=== PATIENT | female | born 1960 | race Hispanic/Latino ===

== ENCOUNTER 2023-05-30 20:52 | Inpatient (IN) | payer OTHER ==
[~2023-05-30] VITALS: Ht 157.5 cm; Wt 73.5 kg
[2023-05-30 21:24] LABS: BASOPHILS % (AUTO) 0.5 % (0.0-5.0); EOSINOPHILS % (AUTO) 0.7 % (0.0-8.0); HEMATOCRIT 41.4 % (36-48); LYMPHOCYTES % (AUTO) 27.1 % (21.0-51.0); MEAN CORPUSCULAR HEMOGLOBIN 28.1 pg (27.0-33.0); MEAN CORPUSCULAR HGB CONC 32.1 g/dL (32.0-36.0); MEAN CORPUSCULAR VOLUME 87.5 fL (79-99); MONOCYTES % (AUTO) 6.9 % (3.0-13.0); NEUTROPHILS % (AUTO) 64.5 % (40.0-77.0); PLATELET COUNT (AUTO) 293 K/uL (130-400); RED BLOOD CELL COUNT(AUTO) 4.73 MIL/uL (4.00-5.50); RED CELL DISTRIBUTION WIDTH 14.9 % (11.0-15.5); WHITE BLOOD COUNT (AUTO) 11.6 K/uL (4.8-10.8)
[2023-05-30 21:25] LABS: APPEARANCE,URINE CLOUDY (CLEAR); BILIRUBIN,URINE NEGATIVE (NEGATIVE); COLOR,URINE YELLOW (YELLOW); GLUCOSE, URINE (UA) NEGATIVE (NEGATIVE); KETONES,URINE 5 mg/dL (NEGATIVE); LEUKOCYTE ESTERASE ,URINE 500 Leu/uL (NEGATIVE); NITRATE,URINE NEGATIVE (NEGATIVE); OCCULT BLOOD,URINE NEGATIVE (NEGATIVE); PROTEIN,URINE 10 mg/dL (NEGATIVE); UROBILINOGEN,URINE 3 mg/dL (0.2-1.0)
[2023-05-30 21:28] LABS: BACTERIA,URINE RARE /HPF (None Seen); MUCUS,URINE RARE LPF (None Seen); OTHER CASTS, URINE 1 /LPF (None Seen); SQUAMOUS EPITHELIAL CELL,UR MOD /HPF (0-2)
[2023-05-30 21:39] LABS: ALBUMIN 3.6 g/dL (3.5-5.0); CARBON DIOXIDE 28 mmol/L (21-32); CHLORIDE 102 mmol/L (101-111); CREATININE 0.8 mg/dL (0.5-1.5); GLOMERULAR FILTR. RATE CALC 82 mL/min (>90); GLUCOSE,RANDOM 198 mg/dL (70-105); POTASSIUM 3.3 mmol/L (3.5-5.1); UREA NITROGEN, BLOOD 7 mg/dL (7-18)
[2023-05-30 21:55] LABS: ALANINE AMINOTRANSFERASE 25 U/L (12-78); ASPARTATE AMINOTRANSFERASE 25 U/L (10-37); SODIUM SERUM 138 mmol/L (136-145)
[2023-05-30 21:56] LABS: LIPASE < 50 U/L (114-286)
[2023-05-30] MEDS ORDERED: FAMOTIDINE 20MG VIAL IV ONE (23:00)
[2023-05-30] MEDS ORDERED: MORPHINE 4 MG SYG IVP ONE (23:00)
[2023-05-30] MEDS ORDERED: LACTATED RINGERS 1000ML 1,000 ML IV ONE (23:00)
[2023-05-30] MEDS ORDERED: ONDANSETRON 4MG INJ IVP ONE (23:00)
[2023-05-30] MEDS ORDERED: IOHEXOL-350 75 ML VIAL IV ONE (23:25)
[2023-05-31] MEDS ORDERED: 0.9%NACL 1000ML 1,000 ML IV ONE (01:00)
[2023-05-31] MEDS ORDERED: ZOSYN 3.375GM +NS 50ML IVPB ONE (01:00)
[2023-05-31] MEDS ORDERED: ONDANSETRON 4MG INJ IV PRN (01:30)
[2023-05-31] MEDS ORDERED: LACTULOSE 20 GM/30 ML UDCUP PO PRN (01:30)
[2023-05-31] MEDS ORDERED: ACETAMINOPHEN 325 MG TAB PO PRN ×2 (01:30)
[2023-05-31] MEDS ORDERED: MORPHINE 2 MG SYG IV PRN (01:30)
[2023-05-31] MEDS: LACTATED RINGERS 1000ML 1,000 ML IV SCH ×3 (02:25→21:14)
[2023-05-31 03:06] VITALS: BP 125/89
[2023-05-31] MEDS ORDERED: LACT10SO9 PO (03:38)
[2023-05-31] MEDS ORDERED: OMEP40CA21 PO (03:38)
[2023-05-31] MEDS ORDERED: ALEN70TA80 PO (03:38)
[2023-05-31] MEDS ORDERED: LUBI8CAP5 PO (03:38)
[2023-05-31] MEDS ORDERED: ERGO500093 PO (03:38)
[2023-05-31] MEDS: ZOSYN 3.375GM+NS 50ML 50 ML IVPB SCH ×3 (05:08→21:16)
[2023-05-31] MEDS: INSULIN HUMULIN R 100 UNIT/ML 3ML SQ SCH ×3 (05:22→18:00)
[2023-05-31] MEDS ORDERED: METRONIDAZOLE 500MG/100ML BAG 100 ML IVPB SCH (06:00)
[2023-05-31 08:00] VITALS: BP 115/71
[2023-05-31] MEDS: FAMOTIDINE 20MG VIAL IV SCH ×2 (11:07→21:17)
[2023-05-31 11:42] VITALS: BP 127/79
[2023-05-31 16:00] VITALS: BP 122/81
[2023-05-31 19:45] VITALS: BP 134/82
[2023-05-31] MEDS ORDERED: BISACODYL 5 MG TABLET.DR PO SCH (21:00)
[2023-05-31] MEDS: DOCUSATE SODIUM 100 MG CAP PO SCH (21:32)
[2023-05-31 23:35] VITALS: BP 130/73
[2023-06-01] MEDS: LACTATED RINGERS 1000ML 1,000 ML IV SCH ×3 (00:30→20:55)
[2023-06-01 04:02] VITALS: BP 132/85
[2023-06-01] MEDS: ZOSYN 3.375GM+NS 50ML 50 ML IVPB SCH ×3 (04:29→20:15)
[2023-06-01] MEDS: INSULIN HUMULIN R 100 UNIT/ML 3ML SQ SCH ×4 (06:31→20:52)
[2023-06-01 08:00] VITALS: BP 130/82
[2023-06-01] MEDS: FAMOTIDINE 20MG VIAL IV SCH ×2 (08:31→20:15)
[2023-06-01] MEDS: DOCUSATE SODIUM 100 MG CAP PO SCH ×2 (08:31→20:15)
[2023-06-01 12:00] VITALS: BP 137/86
[2023-06-01 16:00] VITALS: BP 128/81
[2023-06-01] MEDS: SIMETHICONE 80 MG TAB.CHEW PO SCH ×2 (18:47→20:11)
[2023-06-01 19:45] VITALS: BP 136/92
[2023-06-01 23:48] VITALS: BP 109/79
[2023-06-02] MEDS: LACTATED RINGERS 1000ML 1,000 ML IV SCH ×2 (02:52→05:40)
[2023-06-02 03:52] VITALS: BP 119/76
[2023-06-02] MEDS: ZOSYN 3.375GM+NS 50ML 50 ML IVPB SCH (04:04)
[2023-06-02 06:06] LABS: BASOPHILS % (AUTO) 0.8 % (0.0-5.0); EOSINOPHILS % (AUTO) 2.9 % (0.0-8.0); HEMATOCRIT 36.1 % (36-48); LYMPHOCYTES % (AUTO) 47.7 % (21.0-51.0); MEAN CORPUSCULAR HEMOGLOBIN 28.7 pg (27.0-33.0); MEAN CORPUSCULAR HGB CONC 31.9 g/dL (32.0-36.0); MONOCYTES % (AUTO) 10.5 % (3.0-13.0); PLATELET COUNT (AUTO) 235 K/uL (130-400); RED BLOOD CELL COUNT(AUTO) 4.01 MIL/uL (4.00-5.50); RED CELL DISTRIBUTION WIDTH 14.9 % (11.0-15.5); WHITE BLOOD COUNT (AUTO) 7.8 K/uL (4.8-10.8)
[2023-06-02 06:21] LABS: CREATININE 0.8 mg/dL (0.5-1.5)
[2023-06-02] MEDS: INSULIN HUMULIN R 100 UNIT/ML 3ML SQ SCH (06:36)
[2023-06-02 08:00] VITALS: BP 113/77
[2023-06-02] MEDS: FAMOTIDINE 20MG VIAL IV SCH (08:18)
[2023-06-02] MEDS: DOCUSATE SODIUM 100 MG CAP PO SCH (08:18)
[2023-06-02] MEDS: SIMETHICONE 80 MG TAB.CHEW PO SCH ×2 (08:18→12:59)
[2023-06-02] MEDS: KCL 20 MEQ ERTAB PO PRN ×3 (08:19→13:49)
[2023-06-02] MEDS ORDERED: AMOX1TAB16 PO (08:27)
[2023-06-02] MEDS ORDERED: ONDA-104 PO (08:28)
[2023-06-02] MEDS ORDERED: POTASSIUM CHLORIDE 20MEQ/100ML 100 ML IV PRN ×2 (08:30)
[2023-06-02] MEDS ORDERED: KCL 20 MEQ ERTAB PO PRN (08:30)
[2023-06-02] MEDS ORDERED: MAGNESIUM 2GM PREMIX 50ML 50 ML IV PRN (08:30)
[2023-06-02] MEDS ORDERED: POTASSIUM CHLORIDE 10% ELIXIR 20 MEQ/15 ML UDCUP PO PRN ×2 (08:30)
[2023-06-02 11:40] VITALS: BP 120/74
== END 2023-06-02 15:30 | disposition home or self-care (01) | DRG 392 ==
LOC: EDH 20:52 → EDHIP 20:53 → 4DH 05-31 02:50
PROVIDERS: ADMIT Hospitalist; ATTEND Hospitalist
DX: K57.32 Diverticulitis of large intestine without perforation or abscess without bleeding (principal); N39.0 Urinary tract infection, site not specified; K80.20 Calculus of gallbladder without cholecystitis without obstruction; E87.6 Hypokalemia; E11.9 Type 2 diabetes mellitus without complications; K58.9 Irritable bowel syndrome, unspecified; Z79.899 Other long term (current) drug therapy; Z88.2 Allergy status to sulfonamides
CPT/HCPCS: 36415; 71045; 74018; 74178; 80048; 80053; 81001; 82948; 83605; 83690; 83735; 84484; 85025; 87040; 87088; 93005; G0378; J2270; J2405; J2543; J3490; J7120; Q9967

== ENCOUNTER → 2024-07-02 | Outpatient (CLI) | payer OTHER ==
[~2024-07-02] MED LIST: ERGO500093 PO
== END | disposition home or self-care (01) ==
LOC: RAH 10:16
PROVIDERS: ATTEND Surgery
DX: K57.20 Diverticulitis of large intestine with perforation and abscess without bleeding (principal); N39.9 Disorder of urinary system, unspecified; M47.815 Spondylosis without myelopathy or radiculopathy, thoracolumbar region
CPT/HCPCS: 74018

== ENCOUNTER → 2024-07-16 | Outpatient (CLI) | payer OTHER ==
[~2024-07-16] MED LIST changes: +AMOX1TAB16 PO; +CEPH500B PO; +PHEN-776 PO
[2024-07-16 08:20] LABS: BASOPHILS # (AUTO) 0.06 K/uL (0.00-0.20); BASOPHILS % (AUTO) 0.6 % (0.0-5.0); EOSINOPHILS # (AUTO) 0.15 K/uL (0.00-0.70); EOSINOPHILS % (AUTO) 1.5 % (0.0-8.0); IMMATURE GRANULOCYTE ABSOLUTE 0.02 K/uL (0-1); LYMPHOCYTES # (AUTO) 4.1 K/uL (1.0-4.8); LYMPHOCYTES % (AUTO) 42.4 % (21.0-51.0); MEAN CORPUSCULAR HEMOGLOBIN 30.1 pg (27.0-33.0); MEAN CORPUSCULAR HGB CONC 31.4 g/dL (32.0-36.0); MEAN CORPUSCULAR VOLUME 95.8 fL (79-99); MONOCYTES # (AUTO) 0.6 K/uL (0.1-1.0); MONOCYTES % (AUTO) 6.5 % (3.0-13.0); NEUTROPHILS # (AUTO) 4.8 K/uL (1.8-7.7); NEUTROPHILS % (AUTO) 48.8 % (40.0-77.0); PLATELET COUNT (AUTO) 278 K/uL (130-400); RED BLOOD CELL COUNT(AUTO) 4.49 MIL/uL (4.00-5.50); RED CELL DISTRIBUTION WIDTH 18.2 % (11.0-15.5); WHITE BLOOD COUNT (AUTO) 9.7 K/uL (4.8-10.8)
[2024-07-16 08:31] LABS: CREATININE 0.8 mg/dL (0.5-1.0); POTASSIUM 4.6 mmol/L (3.5-5.1)
== END | disposition home or self-care (01) ==
LOC: LAB 07:28
PROVIDERS: ATTEND Urology
DX: N13.39 Other hydronephrosis (principal)
CPT/HCPCS: 36415; 80048; 82570; 85025

== ENCOUNTER → 2024-07-18 | Emergency (ER) | payer OTHER ==
[~2024-07-18] VITALS: Ht 165.1 cm; Wt 72.6 kg
[2024-07-18 17:28] LABS: APPEARANCE,URINE TURBID (CLEAR); BILIRUBIN,URINE NEGATIVE (NEGATIVE); COLOR,URINE LIGHT-ORANGE (YELLOW); GLUCOSE, URINE (UA) NEGATIVE (NEGATIVE); KETONES,URINE NEGATIVE (NEGATIVE); LEUKOCYTE ESTERASE ,URINE 500 Leu/uL (NEGATIVE); NITRATE,URINE NEGATIVE (NEGATIVE); OCCULT BLOOD,URINE LARGE (NEGATIVE); PROTEIN,URINE 200 mg/dL (NEGATIVE); UROBILINOGEN,URINE 0.2 mg/dL (0.2-1.0)
[2024-07-18 17:29] LABS: ADD UA MICROSCOPIC YES
[2024-07-18 17:34] LABS: BACTERIA,URINE FEW /HPF (None Seen); MUCUS,URINE RARE LPF (None Seen); NON-SQUAMOUS EPITHELIAL CELL 3 /HPF (0-2); UNCLASSIFIED CRYSTAL 3 /HPF (None Seen); WBC CLUMP FEW /HPF (0-1); WBC,URINE 26-50 /HPF (0-1)
[2024-07-18 17:50] LABS: RBC,URINE 26-50 /HPF (0-1)
[2024-07-18 18:45] VITALS: BP 111/74; PULSE 88; RESP 16; O2SAT 100
[2024-07-18] MEDS: cefTRIAXone 1G VIAL IM ONE (18:53)
[2024-07-18] MEDS: PHENAZOPYRIDINE HCL 200 MG TABLET PO ONE (18:53)
== END ==
LOC: EDH 15:33
DX: T83.511A Infection and inflammatory reaction due to indwelling urethral catheter, initial encounter (principal); N39.0 Urinary tract infection, site not specified; Z93.2 Ileostomy status; Z88.2 Allergy status to sulfonamides; Z79.2 Long term (current) use of antibiotics; Z79.899 Other long term (current) drug therapy; Z90.49 Acquired absence of other specified parts of digestive tract; Y84.6 Urinary catheterization as the cause of abnormal reaction of the patient, or of later complication, without mention of misadventure at the time of the procedure; Y92.89 Other specified places as the place of occurrence of the external cause
CPT/HCPCS: 99283; 81001; 96372; J0696; 51798

== ENCOUNTER → 2024-07-23 | Outpatient (CLI) | payer OTHER ==
[~2024-07-23] MED LIST changes: +IOHEXOL-350 75 ML VIAL IV ONE
== END | disposition home or self-care (01) ==
LOC: RAH 07:14
PROVIDERS: ATTEND Urology
DX: N32.89 Other specified disorders of bladder (principal); N13.39 Other hydronephrosis; K76.0 Fatty (change of) liver, not elsewhere classified; K57.30 Diverticulosis of large intestine without perforation or abscess without bleeding; M47.815 Spondylosis without myelopathy or radiculopathy, thoracolumbar region; I70.90 Unspecified atherosclerosis
CPT/HCPCS: 74178; Q9967

== ENCOUNTER → 2024-08-16 | Outpatient (CLI) | payer OTHER ==
[~2024-08-16] MED LIST changes: -IOHEXOL-350 75 ML VIAL IV ONE; +LIDOCAINE HCL 4% LTA SOL 4 ML VIAL TP ONE
== END | disposition home or self-care (01) ==
LOC: WHH 08:06
PROVIDERS: ATTEND Family Medicine
DX: T81.89XD Other complications of procedures, not elsewhere classified, subsequent encounter (principal); S31.105D Unspecified open wound of abdominal wall, periumbilic region without penetration into peritoneal cavity, subsequent encounter; E11.9 Type 2 diabetes mellitus without complications; L84 Corns and callosities; K58.8 Other irritable bowel syndrome; K80.80 Other cholelithiasis without obstruction; K57.92 Diverticulitis of intestine, part unspecified, without perforation or abscess without bleeding; Z99.2 Dependence on renal dialysis; Z79.899 Other long term (current) drug therapy; X58.XXXD Exposure to other specified factors, subsequent encounter; Y83.8 Other surgical procedures as the cause of abnormal reaction of the patient, or of later complication, without mention of misadventure at the time of the procedure
CPT/HCPCS: 87070; 87086 ×2; 87186 ×2; G0463; A6248; A4450

== ENCOUNTER → 2024-08-20 | Outpatient (CLI) | payer OTHER ==
[~2024-08-20] MED LIST changes: -LIDOCAINE HCL 4% LTA SOL 4 ML VIAL TP ONE
== END | disposition home or self-care (01) ==
LOC: RAH 06:36
PROVIDERS: ATTEND Family Medicine
DX: S31.105D Unspecified open wound of abdominal wall, periumbilic region without penetration into peritoneal cavity, subsequent encounter (principal); K57.30 Diverticulosis of large intestine without perforation or abscess without bleeding; K43.5 Parastomal hernia without obstruction or gangrene; M47.815 Spondylosis without myelopathy or radiculopathy, thoracolumbar region; I70.90 Unspecified atherosclerosis; Z93.3 Colostomy status; X58.XXXD Exposure to other specified factors, subsequent encounter
CPT/HCPCS: 74150

== ENCOUNTER → 2024-08-23 | Outpatient (CLI) | payer OTHER ==
[~2024-08-23] MED LIST changes: +LIDOCAINE HCL 4% LTA SOL 4 ML VIAL TP ONE
== END | disposition home or self-care (01) ==
LOC: WHH 10:48
PROVIDERS: ATTEND Family Medicine
DX: T81.89XD Other complications of procedures, not elsewhere classified, subsequent encounter (principal); S31.105D Unspecified open wound of abdominal wall, periumbilic region without penetration into peritoneal cavity, subsequent encounter; E11.9 Type 2 diabetes mellitus without complications; L84 Corns and callosities; K58.8 Other irritable bowel syndrome; K80.80 Other cholelithiasis without obstruction; K57.92 Diverticulitis of intestine, part unspecified, without perforation or abscess without bleeding; Z99.2 Dependence on renal dialysis; Z79.899 Other long term (current) drug therapy; X58.XXXD Exposure to other specified factors, subsequent encounter; Y83.8 Other surgical procedures as the cause of abnormal reaction of the patient, or of later complication, without mention of misadventure at the time of the procedure
CPT/HCPCS: G0463

== ENCOUNTER → 2024-08-25 | Outpatient (CLI) | payer OTHER ==
[~2024-08-25] MED LIST changes: -LIDOCAINE HCL 4% LTA SOL 4 ML VIAL TP ONE
[2024-08-25 07:28] LABS: BASOPHILS # (AUTO) 0.09 K/uL (0.00-0.20); BASOPHILS % (AUTO) 0.9 % (0.0-5.0); HEMATOCRIT 45.5 % (36-48); IMMATURE GRANULOCYTE ABSOLUTE 0.04 K/uL (0-1); LYMPHOCYTES # (AUTO) 3.9 K/uL (1.0-4.8); LYMPHOCYTES % (AUTO) 37.3 % (21.0-51.0); MEAN CORPUSCULAR HEMOGLOBIN 29.8 pg (27.0-33.0); MEAN CORPUSCULAR HGB CONC 32.7 g/dL (32.0-36.0); MONOCYTES # (AUTO) 0.6 K/uL (0.1-1.0); MONOCYTES % (AUTO) 5.5 % (3.0-13.0); NEUTROPHILS # (AUTO) 5.8 K/uL (1.8-7.7); NEUTROPHILS % (AUTO) 54.9 % (40.0-77.0); PLATELET COUNT (AUTO) 291 K/uL (130-400); RED CELL DISTRIBUTION WIDTH 13.8 % (11.0-15.5); WHITE BLOOD COUNT (AUTO) 10.5 K/uL (4.8-10.8)
[2024-08-25 07:38] LABS: CREATININE 1.2 mg/dL (0.5-1.0); POTASSIUM 5.3 mmol/L (3.5-5.1)
== END | disposition home or self-care (01) ==
LOC: LAB 06:47
PROVIDERS: ATTEND Urology
DX: N13.1 Hydronephrosis with ureteral stricture, not elsewhere classified (principal)
CPT/HCPCS: 36415; 80048; 85025

== ENCOUNTER → 2024-08-27 | Outpatient (CLI) | payer OTHER ==
[~2024-08-27] MED LIST changes: +IOHEXOL-350 75 ML VIAL IV ONE
== END | disposition home or self-care (01) ==
LOC: RAH 07:13
PROVIDERS: ATTEND Urology
DX: K57.30 Diverticulosis of large intestine without perforation or abscess without bleeding (principal); N13.1 Hydronephrosis with ureteral stricture, not elsewhere classified; I70.0 Atherosclerosis of aorta
CPT/HCPCS: 74178; Q9967

== ENCOUNTER → 2024-09-02 | Outpatient (CLI) | payer OTHER ==
[~2024-09-02] MED LIST changes: +HONEY 1 APPL/ML TUBE TP ONE; -IOHEXOL-350 75 ML VIAL IV ONE
== END | disposition home or self-care (01) ==
LOC: WHH 10:51
PROVIDERS: ATTEND Family Medicine
DX: T81.89XD Other complications of procedures, not elsewhere classified, subsequent encounter (principal); S31.105D Unspecified open wound of abdominal wall, periumbilic region without penetration into peritoneal cavity, subsequent encounter; E11.9 Type 2 diabetes mellitus without complications; L84 Corns and callosities; K58.8 Other irritable bowel syndrome; K80.80 Other cholelithiasis without obstruction; K57.92 Diverticulitis of intestine, part unspecified, without perforation or abscess without bleeding; Z99.2 Dependence on renal dialysis; Z79.899 Other long term (current) drug therapy; X58.XXXD Exposure to other specified factors, subsequent encounter; Y83.8 Other surgical procedures as the cause of abnormal reaction of the patient, or of later complication, without mention of misadventure at the time of the procedure
CPT/HCPCS: G0463; A4450

== ENCOUNTER → 2024-09-16 | Outpatient (CLI) | payer OTHER ==
[~2024-09-16] MED LIST changes: -HONEY 1 APPL/ML TUBE TP ONE
== END | disposition home or self-care (01) ==
LOC: WHH 11:12
PROVIDERS: ATTEND Family Medicine
DX: T81.89XD Other complications of procedures, not elsewhere classified, subsequent encounter (principal); S31.103D Unspecified open wound of abdominal wall, right lower quadrant without penetration into peritoneal cavity, subsequent encounter; E11.9 Type 2 diabetes mellitus without complications; L84 Corns and callosities; K58.8 Other irritable bowel syndrome; K80.80 Other cholelithiasis without obstruction; K57.92 Diverticulitis of intestine, part unspecified, without perforation or abscess without bleeding; Z99.2 Dependence on renal dialysis; Z79.899 Other long term (current) drug therapy; X58.XXXD Exposure to other specified factors, subsequent encounter; Y83.8 Other surgical procedures as the cause of abnormal reaction of the patient, or of later complication, without mention of misadventure at the time of the procedure
CPT/HCPCS: G0463

== ENCOUNTER → 2024-09-23 | Outpatient (CLI) | payer OTHER | END | disposition home or self-care (01) | LOC: WHH 11:05 | PROVIDERS: ATTEND Family Medicine | DX: T81.89XD Other complications of procedures, not elsewhere classified, subsequent encounter (principal); S31.103D Unspecified open wound of abdominal wall, right lower quadrant without penetration into peritoneal cavity, subsequent encounter; E11.9 Type 2 diabetes mellitus without complications; L84 Corns and callosities; K58.8 Other irritable bowel syndrome; K57.92 Diverticulitis of intestine, part unspecified, without perforation or abscess without bleeding; Z99.2 Dependence on renal dialysis; Z79.899 Other long term (current) drug therapy; X58.XXXD Exposure to other specified factors, subsequent encounter; Y83.8 Other surgical procedures as the cause of abnormal reaction of the patient, or of later complication, without mention of misadventure at the time of the procedure | CPT/HCPCS: G0463 ==

== ENCOUNTER → 2024-09-28 | Outpatient (CLI) | payer OTHER ==
[~2024-09-28] MED LIST changes: +DIATR MEGLU/DIATRIZOATE SODIUM 30 ML BOTTLE ONE
--- NOTE | 2024-09-28 11:21 | HMCIMG ---
CT PELVIS W/O CONTRAST HISTORY: Hydronephrosis COMPARISON: None TECHNIQUE: Multiple sequential axial images of the pelvis were obtained from the iliac crests through symphysis pubis. Patient was not given contrast through intravenous route. Oral contrast was not given. Rectal contrast was given. FINDINGS: A colostomy changes are seen with contrast failed. No evidence of bowel obstruction is seen. Kidneys are not completely included in this study. There are normal sized pelvic and inguinal lymph nodes. Fecal material seen throughout the colon. Diverticula are seen within the colon consistent with diverticulosis. No ascites is seen. Atherosclerotic changes are present. Pelvic sidewalls are symmetric bilaterally. Bladder is poorly distended. No CT evidence of rectovesical fistula is seen. IMPRESSION: 1. Scoliosis. 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 No bowel obstruction is seen. No CT evidence of rectovesical fistula is seen. CT was performed with one or more following dose reduction techniques: automated exposure control, adjustment of the mA and kv according to patient's size, or use of a iterative reconstruction technique.
== END | disposition home or self-care (01) ==
LOC: RAH 09-24 07:21
PROVIDERS: ATTEND Urology
DX: K57.30 Diverticulosis of large intestine without perforation or abscess without bleeding (principal); N32.89 Other specified disorders of bladder; N13.39 Other hydronephrosis; M41.9 Scoliosis, unspecified; Z93.3 Colostomy status; I70.90 Unspecified atherosclerosis
CPT/HCPCS: 72192; Q9963

== ENCOUNTER 2025-01-11 10:50 | Day surgery (SDC) | payer OTHER ==
[~2025-01-11] VITALS: Ht 157.5 cm; Wt 43.5 kg
[2025-01-11] VITALS (12 sets, daily range): BP systolic 89–106; BP diastolic 51–67; PULSE 68–76; RESP 13–18; TEMP 97–97.3
[~2025-01-11 10:50] MED LIST changes: -DIATR MEGLU/DIATRIZOATE SODIUM 30 ML BOTTLE ONE
[2025-01-11] MEDS: 0.9%NACL 1000ML 1,000 ML IV ONE (12:21)
[2025-01-11] MEDS ORDERED: proPOFol 10 MG/ML 20ML VIAL IV ONE (14:13)
[2025-01-11] MEDS: DEXTROSE 50%-WATER 50 ML DISP.SYRIN IV ONE (14:55)
--- NOTE | 2025-01-11 15:30 | NUR ---
family to take pt home then to report to [facility] for direct admit
== END 2025-01-11 15:55 | disposition home or self-care (01) ==
LOC: DAH 10:50 → ENDO 10:50
PROVIDERS: ATTEND Internal Medicine Gastroenterology
DX: R13.12 Dysphagia, oropharyngeal phase (principal); K21.00 Gastro-esophageal reflux disease with esophagitis, without bleeding; K22.2 Esophageal obstruction; R12 Heartburn; K74.3 Primary biliary cirrhosis; R93.3 Abnormal findings on diagnostic imaging of other parts of digestive tract; Z90.49 Acquired absence of other specified parts of digestive tract; Z90.710 Acquired absence of both cervix and uterus; Z88.1 Allergy status to other antibiotic agents; Z88.8 Allergy status to other drugs, medicaments and biological substances; Z79.899 Other long term (current) drug therapy
CPT/HCPCS: 43202; 82948 ×3; 88305; J7030; J7070; J2704; A4620; A4215 ×2; A4223; A4222; A4221; A4663; A4606; J3490

== ENCOUNTER 2025-11-09 10:43 | Day surgery (SDC) | payer OTHER ==
[~2025-11-09] VITALS: Ht 152.4 cm; Wt 50.3 kg
[2025-11-09] VITALS (11 sets, daily range): BP systolic 120–135; BP diastolic 65–80; PULSE 64–89; RESP 14–18; TEMP 97.2–98.9
[~2025-11-09 10:43] MED LIST changes: -AMOX1TAB16 PO; -CEPH500B PO; -ERGO500093 PO; +ESOM40CA66 PO; -PHEN-776 PO
[2025-11-09] MEDS: 0.9%NACL 1000ML 1,000 ML IV ONE (11:24)
[2025-11-09] MEDS ORDERED: SUCCINYLCHOLINE CHLORIDE 20 MG/ML 10 ML VIAL ONE (15:51)
[2025-11-09] MEDS ORDERED: IOHEXOL-350 50ML VIAL IV ONE (17:04)
--- NOTE | 2025-11-18 11:51 | HMCIMG ---
CHEST FLUOROSCOPY INDICATION: EGD WITH STENT PLACEMENT TECHNIQUE: Patient is undergoing EGD with placement of an esophageal stent. Fluoroscopy time 3 minutes 23 seconds. IMPRESSION: Details of the finding in the procedure note.
== END 2025-11-09 17:59 | disposition home or self-care (01) ==
LOC: ENDO 10:43 → DAH 10:43 → ENDO 17:59
PROVIDERS: ATTEND Internal Medicine Gastroenterology
DX: K22.2 Esophageal obstruction (principal); K29.00 Acute gastritis without bleeding; E11.9 Type 2 diabetes mellitus without complications; Z88.8 Allergy status to other drugs, medicaments and biological substances; Z90.710 Acquired absence of both cervix and uterus; Z20.822 Contact with and (suspected) exposure to COVID-19; Z90.49 Acquired absence of other specified parts of digestive tract; Z98.890 Other specified postprocedural states; Z79.899 Other long term (current) drug therapy
CPT/HCPCS: 43266; C1874; J3010 ×2; J0330; J7030 ×2; J3490; J2704; J2405 ×2; Q9967; C1769; A4215 ×2; A4223; A4657; A7002; A4222; A4221; A4663; A4606; C1726; 43249; 76000